=== PATIENT | female | born 1955 | race Hispanic/Latino ===

== ENCOUNTER → 2017-06-09 | Outpatient (CLI) | payer OTHER ==
[~2017-06-09] MED LIST: DIOVAN160 MG PO; GLIPIZIDE10 MG PO; HYZAAR 100-12.1 EACH; LEVEMIR 3M100 UNITS/ SQ; LEVEMIR100 UNIT/1 SQ; LEVOTHYROXINE50 MCG PO; LISINOPRIL5 MG PO; METFORMIN HCL1000 MG PO; PANTOPRAZOLE SO40 MG PO; PRAVASTATIN SOD80 MG PO; PROTONIX40 MG/ML PO
== END ==
LOC: MAMMO 12:57
PROVIDERS: ATTEND Internal Medicine
DX: Z12.31 Encounter for screening mammogram for malignant neoplasm of breast (principal)
CPT/HCPCS: 77067

== ENCOUNTER 2018-08-02 14:01 | Emergency (ER) | payer OTHER ==
[~2018-08-02] VITALS: Ht 162.6 cm; Wt 81.6 kg
--- OUTSIDE RECORDS SUMMARY | 2018-08-02 14:04 | XMS REPORT ---
Author Author [facility] Address Unknown Phone Unavailable Care Team Providers Care Taxi Servicer Name Role Phone Hoang MONTOYA Unavailable Unavailable Odin BASS Unavailable Unavailable Problems This patient has no known problems. Allergies, Adverse Reactions, Alerts This patient has no known allergies or adverse reactions. Medications This patient has no known medications. Results Test Description Test Time Test Comments Text Results Atomic Results Result Comments MAMMOGRAPHY DIGITAL SCR BILAT [place] [address] Patient Name: CHELSI WRIGHT MR #: [id number] : 1955 Age/Sex: 61/F Req #: [id number] [facility] Physician: Ordered by: NORMA MONTOYA MD Report #: [id number] Location: MAMMO Room/Bed: Procedure: [id number] MG/MAMMOGRAPHY DIGITAL SCR BILAT Exam Date: 06/09/17 Exam Time: 1300 REPORT STATUS: Signed #[id number] - MGSCRBIL #BILATERAL DIGITAL SCREENING MAMMOGRAM WITH CAD: 06/09/2017 CLINICAL: Routine screening. Comparison is made to exams dated: 04/21/2016 mammogram and 08/22/2013 mammogram - [facility]. Current study contains 4 films. There are scattered fibroglandular elements in both breasts. Current study was also evaluated with a Computer Aided Detection (CAD) system. There are benign calcifications in both breasts. There also are benign densities in both breasts. Additionally there is a benign intramammary node in the right breast. No significant masses, calcifications, or other findings are seen in either breast. There has been no significant interval change. IMPRESSION: BENIGN There is no mammographic evidence of malignancy. A 1 year screening mammogram is recommended. The patient will be notified by letter of the results. Adriana block/alfreda:06/16/2017 09:30:05 Physical Therapy Director: Ritu BOGGS(Mikaela)(Hoang), [facility] letter sent: Compared to Prior B9 Mammogram BI- RADS: 2 Benign Dictated By: ADRIANA FRAZIER DO 9 Transcribed By: ALFREDA on 06/16/17929 COPY TO: NORMA MONTOYA MD ANKLE 3+ VIEWS LEFT [place] [address] Patient Name: CHELSI WRIGHT MR #: [id number] : 1955 Age/Sex: 60/F Req #: [id number] Adm Physician: Ordered by: ALEXIS BASS MD Report #: [id number] Location: ER Room/Bed: Procedure: [id number] DX/ANKLE 3+ VIEWS LEFT Exam Date: Exam Time: REPORT STATUS: Signed ANKLE 3+ VIEWS LEFT Comparison: None Clinical history: Pain, swelling Findings: Moderate soft tissue swelling about the ankle. No fracture or dislocation. Incidental plantar calcaneal spur. Impression: Moderate soft tissue swelling without acute bony abnormality Signed by: Dr Benedict Gray MD on 11/11/2016 5:17 AM Dictated By: BENEDICT GRAY MD 6 Transcribed By: JAELYN on 11/11/16516 COPY TO: ALEXIS BASS MD
[2018-08-02] MEDS ORDERED: ACETAMINOPHEN 1000 MG/100 ML IV ONE (14:19)
[2018-08-02] MEDS ORDERED: SODIUM CHLORIDE 0.9% 1000ML 1,000 ML IV STA (14:19)
[2018-08-02 14:41] LABS: BASOPHILS % 0.3 % (0.0-1.0); EOSINOPHILS % 0.4 % (0.0-6.0); HEMATOCRIT 37.4 % (34.2-44.1); HEMOGLOBIN 13.1 g/dL (12.0-16.0); LYMPHOCYTES # (AUTO) 0.7 (1.0-3.2); LYMPHOCYTES % 10.9 % (18.0-39.1); MEAN CORPUSCULAR HEMOGLOBIN 29.6 pg (28-32); MEAN CORPUSCULAR VOLUME 84.6 fL (81-99); MONOCYTES # (AUTO) 0.6 (0.2-0.8); MONOCYTES % 8.5 % (4.4-11.3); NEUTROPHILS # (AUTO) 5.4 (2.1-6.9); NEUTROPHILS % 79.3 % (38.7-80.0); PLATELET COUNT 180 x10e3/uL (140-360); RED BLOOD COUNT 4.42 x10e6/uL (3.6-5.1); RED CELL DISTRIBUTION WIDTH 12.8 % (11.7-14.4)
[2018-08-02 14:57] LABS: ALBUMIN 4.1 g/dL (3.5-5.0); ALBUMIN/GLOBULIN RATIO 1.2 (0.8-2.0); ANION GAP 15.8 mmol/L (8-16); CALCIUM 9.5 mg/dL (8.4-10.2); CLARITY,URINE CLEAR (CLEAR); COLOR,URINE YELLOW (YELLOW); CREATININE, SERUM 0.94 mg/dL (0.57-1.11); LEUKOCYTE ESTERASE ,URINE NEGATIVE (NEGATIVE); NITRITE,URINE NEGATIVE (NEGATIVE); POTASSIUM 3.8 mmol/L (3.5-5.1); PROTEIN,URINE DIPSTICK NEGATIVE (NEGATIVE); URINE UROBILINOGEN 0.2 mg/dL (0.2 - 1)
[2018-08-02 14:58] LABS: BILIRUBIN,URINE 1+ (NEGATIVE); KETONES,URINE NEGATIVE (NEGATIVE)
[2018-08-02] MEDS ORDERED: CEFEPIME 1GM/NS 0.9% 50 ML 50 ML IV ONE (15:00)
[2018-08-02 15:03] LABS: CREATINE KINASE MB 1.2 ng/mL (0-5.0)
[2018-08-02] MEDS ORDERED: SODIUM CHLORIDE 0.9% 1000ML 1,000 ML IV SCH (15:15)
[2018-08-02] MEDS ORDERED: INSULIN REGULAR, HUMAN 100 UNIT/1 ML 3ML VIAL IV ONE (15:15)
[2018-08-02 15:17] LABS: BACTERIA,URINE FEW /HPF; EPITHELIAL CELLS,URINE MODERATE /LPF; RBC,URINE 0-5 /HPF (0-5); TRANSITIONAL EPI CELLS,URINE FEW
--- NOTE | 2018-08-02 16:52 | Diagnostic Imaging Report ---
EXAM: CHEST SINGLE (PORTABLE), AP Portable DATE: 08/02/2018 Time stamp on exam: 2:34 PM INDICATION: Cough and fever COMPARISON: None FINDINGS: LINES/TUBES: None LUNGS: Pulmonary vascular congestion. PLEURA: No effusions or pneumothorax. HEART AND MEDIASTINUM: Cardiomegaly. BONES AND SOFT TISSUES: No acute findings. IMPRESSION: Cardiomegaly with pulmonary vascular congestion. Signed by: Dr. Quang Bynum DO on 08/02/2018 4:48 PM
--- NOTE | 2018-08-02 17:07 | Diagnostic Imaging Report ---
EXAM: CT ABDOMEN AND PELVIS with IV CONTRAST DATE: 08/02/2018 Time stamp on Exam: 3:59 PM INDICATION: Abdominal pain, nausea and vomiting COMPARISON: None TECHNIQUE: The abdomen and pelvis were scanned using a multidetector helical scanner. Coronal and sagittal reformations were obtained. Routine protocol performed. Technique modification was utilized to maintain the lowest dose possible to the patient. IV Contrast: 100 cc of Isovue-300 Oral Contrast: None Radiation Dose: Total DLP 567.97 mGy*cm Estimated effective dose: DLP x 0.015 x size factor FINDINGS: LOWER THORAX: There is right hilar adenopathy and mediastinal adenopathy. CT scan with IV contrast is recommended for further evaluation. LIVER: No masses with diffuse hepatic fatty infiltration. BILIARY: The gallbladder is absent. Calcification in the gallbladder fossa. No ductal dilatation. SPLEEN: No masses PANCREAS: No masses ADRENALS: There is a 4.9 cm left adrenal mass with some macroscopic fat. Adrenal mass protocol MRI is recommended for further evaluation due to the size of this. Some irregular enhancement is seen within this mass. The macroscopic fat is suggestive of a benign myelolipoma. KIDNEYS: Symmetric perfusion. No enhancing masses. No hydronephrosis. Right renal cystic lesion is too small to characterize. GI TRACT: No distention, wall thickening or evidence of obstruction. Sigmoid colon diverticulosis without findings of diverticulitis. VESSELS: Vascular calcification with an accessory left renal artery. PERITONEUM/RETROPERITONEUM: No free air or fluid LYMPH NODES: No lymphadenopathy REPRODUCTIVE ORGANS: There is a uterine fibroid present. BLADDER: Unremarkable SOFT TISSUES: Unremarkable BONES: No suspicious bone lesions. Mild degenerative changes of the spine. IMPRESSION: 1. No acute abnormality within the abdomen or pelvis. 2. Large left adrenal mass likely is benign but MRI adrenal mass protocol is recommended for complete characterization. 3. Diffuse hepatic steatosis. 4. Right hilar and mediastinal lymphadenopathy. 5. Colonic diverticulosis without evidence of diverticulitis. Signed by: Dr. Quang Bynum DO on 08/02/2018 5:04 PM
[2018-08-02] MEDS ORDERED: SODIUM CHLORIDE 0.9% 50ML 50 ML ONE (17:48)
[2018-08-02] MEDS ORDERED: IOPAMIDOL 370 MG/ML 200 ML INFUS..BTL INJ ONE (17:48)
[2018-08-02 18:08] VITALS: BP 168/78
== END 2018-08-02 18:26 | disposition home or self-care (01) ==
LOC: ER 14:01
DX: R07.2 Precordial pain (principal); R50.9 Fever, unspecified; R05 Cough; J15.9 Unspecified bacterial pneumonia; I10 Essential (primary) hypertension; E11.9 Type 2 diabetes mellitus without complications; E03.9 Hypothyroidism, unspecified; E78.5 Hyperlipidemia, unspecified
CPT/HCPCS: 36415; 71045; 74177; 80053; 81001; 82550; 82553; 82948; 83605; 83690; 83880; 84484; 85025; 87040; 87086; 93005; 99284; J0692; J1817; J7030; Q9967

== ENCOUNTER 2019-04-07 15:33 | Emergency (ER) | payer MEDICARE, OTHER ==
[~2019-04-07] VITALS: Ht 162.6 cm; Wt 81.6 kg
[2019-04-07 16:46] LABS: BASOPHILS % 0.3 % (0.0-1.0); EOSINOPHILS # (AUTO) 0.1 (0.0-0.4); EOSINOPHILS % 1.1 % (0.0-6.0); HEMATOCRIT 37.9 % (34.2-44.1); LYMPHOCYTES % 18.8 % (18.0-39.1); MEAN CORPUSCULAR HEMOGLOBIN 29.3 pg (28-32); MEAN CORPUSCULAR HGB CONC 34.3 g/dL (31-35); MEAN CORPUSCULAR VOLUME 85.6 fL (81-99); MONOCYTES # (AUTO) 0.6 (0.2-0.8); MONOCYTES % 5.4 % (4.4-11.3); NEUTROPHILS # (AUTO) 7.7 (2.1-6.9); NEUTROPHILS % 73.9 % (38.7-80.0); PLATELET COUNT 225 x10e3/uL (140-360); RED BLOOD COUNT 4.43 x10e6/uL (3.6-5.1); RED CELL DISTRIBUTION WIDTH 12.5 % (11.7-14.4)
[2019-04-07 17:08] LABS: ALANINE AMINOTRANSFERASE 20 IU/L (0-55); ALBUMIN 4.2 g/dL (3.5-5.0); ALBUMIN/GLOBULIN RATIO 1.2 (0.8-2.0); ALKALINE PHOSPHATASE 137 IU/L (40-150); ANION GAP 13.6 mmol/L (8-16); BLOOD UREA NITROGEN 16 mg/dL (7-26); BUN/CREATININE RATIO 20 (6-25); CALCIUM 9.4 mg/dL (8.4-10.2); CARBON DIOXIDE 28 mmol/L (22-29); CHLORIDE 99 mmol/L (98-107); CREATINE KINASE 40 IU/L (29-168); CREATININE, SERUM 0.79 mg/dL (0.57-1.11); EST GLOMERULAR FILTRATION RATE > 60 ML/MIN (60-); GLUCOSE 125 mg/dL (74-118); POTASSIUM 3.6 mmol/L (3.5-5.1); SODIUM 137 mmol/L (136-145)
[2019-04-07] MEDS: CLONIDINE HCL 0.2 MG TAB PO ONE (17:09)
[2019-04-07] MEDS: ACETAMINOPHEN 325 MG TAB PO ONE (17:09)
--- NOTE | 2019-04-07 18:25 | Diagnostic Imaging Report ---
EXAM: CHEST SINGLE (PORTABLE), AP Portable DATE: 04/07/2019 3:50 PM INDICATION: CHF. Hypertension. COMPARISON: 07/02/2018. FINDINGS: LINES/TUBES: None LUNGS: Pulmonary vascular congestion. No consolidations. Mild elevation of the right hemidiaphragm. PLEURA: No effusions or pneumothorax. HEART AND MEDIASTINUM: Cardiomegaly. BONES AND SOFT TISSUES: No acute findings. IMPRESSION: Cardiomegaly with mild pulmonary vascular congestion. Signed by: Dr. Peter Smallwood M.D. on 04/07/2019 6:22 PM
== END 2019-04-07 18:54 | disposition home or self-care (01) ==
LOC: ER 15:33
DX: I10 Essential (primary) hypertension (principal)
CPT/HCPCS: 36415; 71045; 80053; 82550; 82553; 83880; 84484; 85025; 93005; 99284

== ENCOUNTER 2019-04-17 08:21 | Emergency (ER) | payer MEDICARE ==
[~2019-04-17] VITALS: Ht 157.5 cm; Wt 83.9 kg
--- OUTSIDE RECORDS SUMMARY | 2019-04-17 08:24 | XMS REPORT ---
[facility] Address Unknown Phone Unavailable Care Team Providers Care Computer Project Manager Name Role Phone James LÓPEZ Unavailable Unavailable Melvin LOGAN Unavailable Unavailable Hoang MONTOYA Unavailable Unavailable Odin BASS Unavailable Unavailable Problems This patient has no known problems. Allergies, Adverse Reactions, Alerts This patient has no known allergies or adverse reactions. Medications This patient has no known medications. Results Test Description Test Time Test Comments Text Results Atomic Results Result Comments CHEST SINGLE (PORTABLE) 2019-04-07 18:21:00 [place] [address] Patient Name: CHELSI MARQUES MR #: [id number] : 1955 Age/Sex: 63/F Req #: [id number] Adm Physician: Ordered by: URIEL LÓPEZ MD Report #: [id number] Location: ER Room/Bed: Procedure: [id number] DX/CHEST SINGLE (PORTABLE) Exam Date: 04/07/19 Exam Time: 1635 REPORT STATUS: Signed EXAM: CHEST SINGLE (PORTABLE), AP Portable DATE: 04/07/2019 3:50 PM INDICATION: CHF. Hypertension. COMPARISON: 07/02/2018. FINDINGS: LINES/TUBES: None LUNGS: Pulmonary vascular congestion. No consolidations. Mild elevation of the right hemidiaphragm. PLEURA: No effusions or pneumothorax. HEART AND MEDIASTINUM: Cardiomegaly. BONES AND SOFT TISSUES: No acute findings. IMPRESSION: Cardiomegaly with mild pulmonary vascular congestion. Signed by: Dr. Peter Moraes M.D. on 04/07/2019 6:22 PM Dictated By: WAQAS MORAES MD, MD 21 Transcribed By: JAELYN on 04/07/191821 COPY TO: URIEL LÓPEZ MD CT ABDOMEN/PELVIS W 2018-08-02 16:49:00 [place] [address] Patient Name: CHELSI WRIGHT MR #: [id number] : 1955 Age/Sex: 62/F Req #: [id number] Adm Physician: Ordered by: TANYA LOGAN MD Report #: [id number] Location: ER Room/Bed: Procedure: [id number] CT/CT ABDOMEN/PELVIS W Exam Date: 08/02/18 Exam Time: 1550 REPORT STATUS: Signed EXAM: CT ABDOMEN AND PELVIS with IV CONTRAST DATE: Time stamp on Exam: 3:59 PM INDICATION: Abdominal pain, nausea and vomiting COMPARISON: None TECHNIQUE: The abdomen and pelvis were scanned using a multidetector helical scanner. Coronal and sagittal reformations were obtained. Routine protocol performed. Technique modification was utilized to maintain the lowest dose possible to the patient. IV Contrast: 100 cc of Isovue-300 Oral Contrast: None Radiation Dose: Total DLP 567.97 mGy*cm Estimated effective dose: DLP x 0.015 x size factor FINDINGS: LOWER THORAX: There is right hilar adenopathy and mediastinal adenopathy. CT scan with IV contrast is recommended for further evaluation. LIVER: No masses with diffuse hepatic fatty infiltration. BILIARY: The gallbladder is absent. Calcification in the gallbladder fossa. No ductal dilatation. SPLEEN: No masses PANCREAS: No masses ADRENALS: There is a 4.9 cm left adrenal mass with some macroscopic fat. Adrenal mass protocol MRI is recommended for further evaluation due to the size of this. Some irregular enhancement is seen within this mass. The macroscopic fat is suggestive of a benign myelolipoma. KIDNEYS: Symmetric perfusion. No enhancing masses. No hydronephrosis. Right renal cystic lesion is too small to characterize. GI TRACT: No distention, wall thickening or evidence of obstruction. Sigmoid colon diverticulosis without findings of diverticulitis. VESSELS: Vascular calcification with an accessory left renal artery. PERITONEUM/RETROPERITONEUM: No free air or fluid LYMPH NODES: No lymphadenopathy REPRODUCTIVE ORGANS: There is a uterine fibroid present. BLADDER: Unremarkable SOFT TISSUES: Unremarkable BONES: No suspicious bone lesions. Mild degenerative changes of the spine. IMPRESSION: 1. No acute abnormality within the abdomen or pelvis. 2. Large left adrenal mass likely is benign but MRI adrenal mass protocol is recommended for complete characterization. 3. Diffuse hepatic steatosis. 4. Right hilar and mediastinal lymphadenopathy. 5. Colonic diverticulosis without evidence of diverticulitis. Signed by: Dr. Quang Bynum DO on 08/02/2018 5:04 PM Dictated By: QUANG BYNUM DO 03 Transcribed By: JAELYN on 08/02/181703 COPY TO: TANYA LOGAN MD CHEST SINGLE (PORTABLE) 2018-08-02 16:47:00 [place] [address] Patient Name: CHELSI WRIGHT MR #: [id number] : 1955 Age/Sex: 62/F Req #: [id number] Adm Physician: Ordered by: TANYA LOGAN MD Report #: [id number] Location: ER Room/Bed: Procedure: [id number] DX/CHEST SINGLE (PORTABLE) Exam Date: 08/02/18 Exam Time: 1430 REPORT STATUS: Signed EXAM: CHEST SINGLE (PORTABLE), AP Portable DATE: 08/02/2018 Time stamp on exam: 2:34 PM INDICATION: Cough and fever COMPARISON: None FINDINGS: LINES/TUBES: None LUNGS: Pulmonary vascular congestion. PLEURA: No effusions or pneumothorax. HEART AND MEDIASTINUM: Cardiomegaly. BONES AND SOFT TISSUES: No acute findings. IMPRESSION: Cardiomegaly with pulmonary vascular congestion. Signed by: Dr. Quang Bynum DO on 08/02/2018 4:48 PM Dictated By: QUANG BYNUM DO 47 Transcribed By: JAELYN on 08/02/181647 COPY TO: TANYA LOGAN MD MAMMOGRAPHY DIGITAL SCR BILAT [place] [address] Patient Name: CHELSI WRIGHT MR #: [id number] : 1955 Age/Sex: 61/F Req #: [id number] Adm Physician: Ordered by: NORMA MONTOYA MD Report #: [id number] [facility] Room[facility]Bed: Procedure: [id number] MG/MAMMOGRAPHY DIGITAL SCR BILAT Exam Date: 06/09/17 Exam Time: 1300 REPORT STATUS: Signed #[id number] - MGSCRBIL #BILATERAL DIGITAL SCREENING MAMMOGRAM WITH CAD: 06/09/2017 CLINICAL: Routine screening. Comparison is made to exams dated: 04/21/2016 mammogram and 08/22/2013 mammogram - [facility]. Current study contains 4 films. There are [...] be notified by letter of the results. Quang block/arabella:06/16/2017 09:30:05 Pattern Keeper: Ritu Camarena RT(R)(M), [facility] letter sent: Compared to Prior B9 Mammogram BI- RADS: 2 Benign Dictated By: QUANG BYNUM DO 9 Transcribed By: ARABELLA on 06/16/17929 COPY TO: NORMA MONTOYA MD ANKLE 3+ VIEWS LEFT [place] [address] Patient Name: CHELSI WRIGHT MR #: [id number] : 1955 Age/Sex: 60/F Req #: [id number] Adm Physician: Ordered by: ALEXIS BASS MD Report #: [id number] Location: ER Room/Bed: Procedure: [id number] DX/ANKLE 3+ VIEWS LEFT Exam Date: Exam [...]
[2019-04-17] MEDS ORDERED: SODIUM CHLORIDE 0.9% 1000ML 1,000 ML IV STA (08:36)
[2019-04-17 08:59] LABS: BASOPHILS % 0.2 % (0.0-1.0); EOSINOPHILS # (AUTO) 0.1 (0.0-0.4); EOSINOPHILS % 0.6 % (0.0-6.0); HEMATOCRIT 39.3 % (34.2-44.1); HEMOGLOBIN 13.6 g/dL (12.0-16.0); LYMPHOCYTES # (AUTO) 1.9 (1.0-3.2); LYMPHOCYTES % 15.5 % (18.0-39.1); MEAN CORPUSCULAR HEMOGLOBIN 29.4 pg (28-32); MEAN CORPUSCULAR HGB CONC 34.6 g/dL (31-35); MEAN CORPUSCULAR VOLUME 85.1 fL (81-99); MONOCYTES # (AUTO) 0.5 (0.2-0.8); MONOCYTES % 4.1 % (4.4-11.3); NEUTROPHILS # (AUTO) 9.9 (2.1-6.9); NEUTROPHILS % 79.2 % (38.7-80.0); PLATELET COUNT 237 x10e3/uL (140-360); RED BLOOD COUNT 4.62 x10e6/uL (3.6-5.1); RED CELL DISTRIBUTION WIDTH 12.4 % (11.7-14.4)
[2019-04-17 09:12] LABS: INR 0.91; PROTHROMBIN TIME 12.8 seconds (11.9-14.5)
[2019-04-17 09:19] LABS: BILIRUBIN,URINE NEGATIVE (NEGATIVE); CLARITY,URINE CLOUDY (CLEAR); COLOR,URINE YELLOW (YELLOW); KETONES,URINE NEGATIVE (NEGATIVE); LEUKOCYTE ESTERASE ,URINE LARGE (NEGATIVE); NITRITE,URINE NEGATIVE (NEGATIVE); PROTEIN,URINE DIPSTICK 2+ (NEGATIVE); URINE UROBILINOGEN 0.2 mg/dL (0.2 - 1)
[2019-04-17 09:35] LABS: BACTERIA,URINE MANY /HPF; EPITHELIAL CELLS,URINE RARE /LPF; RBC,URINE 21-50 /HPF (0-5); WBC,URINE (MAN) >50 /HPF (0-5)
--- NOTE | 2019-04-17 09:44 | Diagnostic Imaging Report ---
Exams: Head and cervical spine CTs without IV contrast History: Head and neck pain Comparison studies: Head CT 08/13/2015 and 01/15/2015 Technique: Axial images were obtained from the brain and cervical spine. Coronal and sagittal images reconstructed from the axial data. Dose modulation, iterative reconstruction, and/or weight based adjustment of the mA/kV was utilized to reduce the radiation dose to as low as reasonably achievable. Intravenous contrast: None Findings: Head CT: Scalp: No abnormalities. Bones: No fractures, blastic or lytic lesions. Extra-axial spaces: Amorphous 2.0 x 0.5 x 1.5 cm (SI x AP x TV) calcification along the dorsal foramen magnum extends into the dorsal cervical canal at the C1-C2 level and results result in moderate to severe stenosis at the C1-C2 level. Findings could represent calcified meningioma or chronic ligamentous or dystrophic calcification. Brain sulci: Appropriate for age. Ventricles: Normal in size and configuration. No hydrocephalus. Parenchyma: No abnormal densities. No masses, acute hemorrhage, acute or chronic vascular insults. Sellar/suprasellar region: No abnormalities. Craniocervical junction: See extra-axial spaces, as above. No Chiari one malformation. Cervical spine CT: Fractures: None. Soft tissues: No gross acute abnormalities. Atlantoaxial articulation: Intact. Alignment: Normal lordosis. No scoliosis. Cervicomedullary junction: No Chiari one malformation. See extra-axial spaces, as above. Vertebrae: No fracture or infection. A few scattered small nonaggressive-appearing lucent foci such as that in the C4, C5 and C6 vertebral bodies are nonspecific, possibly small hemangiomas. Degenerative changes: Right anterior marginal osteophyte at C5-C6 indents the prevertebral soft tissues. Mildly degenerated C5-C6 and C7-T1 discs. Small disc osteophyte complex at C5-C6 and this the thecal sac without significant canal stenosis. Mild multilevel uncovertebral and facet arthrosis without significant foraminal stenosis. Incidental findings: * Calcified atherosclerosis in the carotid bulbs, carotid siphons and intradural vertebral arteries. Anatomical retropharyngeal course of the bilateral cervical carotid arteries. * Nonspecific thyroid heterogeneity with punctate calcification in the right mid thyroid lobe. Findings could be correlated with thyroid function testing. * IMPRESSION: Head CT: 1. No acute abnormalities. 2. Chronic calcification at the foramen magnum/upper cervical canal results in moderate to severe canal stenosis and has been present on remote exams which date to 01/15/2015. Differential includes calcified meningioma or thick calcified ligament. Cervical spine MRI with IV contrast may further evaluate. Cervical spine CT: 1. No acute osseous abnormalities. 2. Chronic calcification in the dorsal foramen magnum/upper cervical canal, as above. 3. Mild degenerative changes as described. 4. Cannot exclude ligament, spinal cord and or vascular abnormalities on the basis of this examination. Signed by: Dr. Yong Broussard M.D. on 04/17/2019 9:41 AM
[2019-04-17] MEDS ORDERED: ONDANSETRON HCL INJ 2MG/ML 2ML 2 MG/ML VIAL IV STA (11:22)
[2019-04-17] MEDS ORDERED: CEFTRIAXONE SOD 1 GM/NS 50 ML 50 ML IV ONE (11:30)
[2019-04-17] MEDS ORDERED: MORPHINE SULFATE 2 MG/ML SYR 1ML IV ONE (11:30)
[2019-04-17 11:44] LABS: ALANINE AMINOTRANSFERASE 17 IU/L (0-55); ALBUMIN 4.3 g/dL (3.5-5.0); ALBUMIN/GLOBULIN RATIO 1.1 (0.8-2.0); ALKALINE PHOSPHATASE 151 IU/L (40-150); ANION GAP 15.1 mmol/L (8-16); BLOOD UREA NITROGEN 17 mg/dL (7-26); BUN/CREATININE RATIO 25 (6-25); CALCIUM 9.7 mg/dL (8.4-10.2); CARBON DIOXIDE 27 mmol/L (22-29); CHLORIDE 98 mmol/L (98-107); CREATINE KINASE 15 IU/L (29-168); CREATININE, SERUM 0.69 mg/dL (0.57-1.11); EST GLOMERULAR FILTRATION RATE > 60 ML/MIN (60-); GLUCOSE 151 mg/dL (74-118); MAGNESIUM 1.4 MG/DL (1.3-2.1); POTASSIUM 4.1 mmol/L (3.5-5.1); SODIUM 136 mmol/L (136-145)
[2019-04-17] MEDS ORDERED: GADOBENATE DIMEGLUMINE 1 ML IV ONE (12:17)
--- NOTE | 2019-04-17 13:13 | Diagnostic Imaging Report ---
EXAM: CHEST SINGLE (PORTABLE) DATE: 04/17/2019 8:36 AM INDICATION: Headache COMPARISON: 04/07/2019 FINDINGS: The trachea is midline. There is no evidence for large focal consolidation, pneumothorax, or significant pleural effusion. The cardiac silhouette remains enlarged. The pulmonary vasculature is not engorged. Mediastinal contours are unremarkable. No acute osseous abnormality is identified. IMPRESSION: No acute cardiopulmonary process or significant interval change identified from 04/07/2019. Stable cardiomegaly. Signed by: Dr. Erik Mayes MD on 04/17/2019 1:10 PM
--- NOTE | 2019-04-17 14:13 | Diagnostic Imaging Report ---
Brain MRI without IV contrast and cervical spine MRI without with IV contrast History: Neck pain, headache, lesion seen on CT. Comparison studies: Head and cervical spine CTs of 04/17/2019, head CTs of 08/13/2015 and 01/15/2015. Brain MRI: Sagittal and axial T2, axial WI, precontrast axial T1 FLAIR, axial coronal T2 flair, axial T2*GRE. IV contrast: None. Cervical spine MRI: Sagittal and axial T2, precontrast sagittal and axial T1 FLAIR, sagittal T2, axial T2*GRE and postcontrast sagittal and axial T1 FS. IV contrast: 19 cc MultiHance Findings: Brain MRI: Scalp: No abnormal signal. No masses. Bone marrow: Normal in signal intensity. Brain sulci: Appropriate for age. Ventricles: Normal in size Extra-axial spaces: Enhancing mass at the craniocervical junction/upper cervical canal as below. No other mass or fluid collection. Parenchyma: No mass, hemorrhage or acute ischemia. A few scattered T2 FLAIR hyperintense foci in the supratentorial white matter are nonspecific but are most compatible with chronic microvascular ischemic changes. Suprasellar region: No abnormalities. Craniocervical junction: Calcified, enhancing 2.0 x 0.7 x 1.5 cm (SI x AP x TV) lesion with dural tail along the dorsal foramen magnum extends into the upper cervical canal the C1-C2 and results in severe canal stenosis at the C1-C2 level with mass effect on the spinal cord without associated cord signal abnormality. Vessels: Normal flow-voids in the arteries and sinuses. Anatomical variant retropharyngeal course of the carotid arteries. Cervical spine MRI without with IV contrast Alignment: Straightened cervical curvature may be positional. Cervicomedullary junction: No abnormalities. Patent foramen magnum. Soft tissues: No T2 hyperintense inflammatory changes. Spinal cord: Cord Vertebrae: No fractures, infection or neoplasm. Degenerative changes: C2-C3: Mildly degenerated disc. Patent canal and foramina. C3-C4: Mild degenerated disc. Mild right uncovertebral arthrosis without significant foraminal stenosis. Patent canal and left foramen. C4-C5: Early degenerated disc uncovertebral arthrosis without significant foraminal stenosis. Patent canal. C5-C6: Mildly degenerated disc. Disc osteophyte complex and bilateral uncovertebral arthrosis without significant canal or foraminal stenosis. C6-C7: Small disc bulge does not result significant canal stenosis. Patent neural foramina. C7-T1: Small disc osteophyte complex indents the thecal sac but does not result in significant canal stenosis. Patent neural foramina. Included thoracic spine: Mild multilevel disc degeneration small disc bulges at T2-T3 and at T3-T4 without significant canal stenosis, mild degenerative endplate changes with mild endplate edema at T5-T6. IMPRESSION: Brain MRI: 1. No acute intracranial abnormalities. 2. Mild chronic microvascular ischemic changes. 3. Calcified, 2.0 cm enhancing dural-based mass within the dorsal foramen magnum/upper cervical canal results in severe canal stenosis with associated mass effect on the cervical cord near the craniocervical junction at C1-C2. No associated cord signal abnormality. Working diagnosis is meningioma Cervical spine MRI: 1. Enhancing calcified lesion at the foramen magnum/upper cervical canal with severe canal stenosis and mass effect on the cord at C1-C2 as described above. 2. Mild degenerative changes without significant canal or foraminal stenosis. Signed by: Dr. Yong Broussard M.D. on 04/17/2019 2:10 PM
[2019-04-17 14:29] VITALS: BP 138/73
--- NOTE | 2019-04-17 15:38 | NUR ---
[facility] called for transport
[2019-04-17] MEDS ORDERED: DEXAMETHASONE SOD PHOS 10 MG/1 ML VIAL IV ONE (15:45)
--- NOTE | 2019-04-17 17:10 | NUR ---
report given to shady kent at [facility]
== END 2019-04-17 17:02 | disposition short-term general hospital (02) ==
LOC: ER 08:21
DX: G44.89 Other headache syndrome (principal); S16.1XXA Strain of muscle, fascia and tendon at neck level, initial encounter; N39.0 Urinary tract infection, site not specified; I10 Essential (primary) hypertension; E11.9 Type 2 diabetes mellitus without complications; E78.00 Pure hypercholesterolemia, unspecified; Z79.84 Long term (current) use of oral hypoglycemic drugs
CPT/HCPCS: 36415; 70450; 70551; 71045; 72125; 72156; 80053; 81001; 82550; 82553; 83735; 84443; 84484; 85025; 85610; 87086; 87186; 93005; 93880; 99284; A9577; J0696; J1100; J2270; J2405; J7030

== ENCOUNTER 2022-01-15 20:23 | Emergency (ER) | payer MEDICARE ==
[~2022-01-15] VITALS: Ht 162.6 cm; Wt 77.1 kg
[2022-01-15] MEDS ORDERED: NAPROSYN500 MG PO (21:35)
== END 2022-01-15 22:03 | disposition home or self-care (01) ==
LOC: ER 20:29
DX: M25.512 Pain in left shoulder (principal); G89.29 Other chronic pain; I10 Essential (primary) hypertension; E11.9 Type 2 diabetes mellitus without complications; E78.00 Pure hypercholesterolemia, unspecified
CPT/HCPCS: 99283

== ENCOUNTER 2024-09-29 14:07 | Emergency (ER) | payer MEDICARE ==
[~2024-09-29] VITALS: Ht 162.6 cm; Wt 77.1 kg
[~2024-09-29 14:07] MED LIST changes: +NAPROSYN500 MG PO
[2024-09-29 14:17] VITALS: TEMP 98.2
[2024-09-29 14:52] LABS: BASOPHILS % 0.3 % (0.0-1.0); EOSINOPHILS % 0.9 % (0.0-6.0); LYMPHOCYTES % 16.9 % (18.0-39.1); MONOCYTES % 6.1 % (4.4-11.3); NEUTROPHILS % 75.7 % (38.7-80.0); RED CELL DISTRIBUTION WIDTH 13.5 % (11.7-14.4)
[2024-09-29 15:09] VITALS: PULSE 81; RESP 15; O2SAT 99
[2024-09-29 15:25] LABS: EST GLOMERULAR FILTRATION RATE 50.0 ML/MIN (>=60)
[2024-09-29] MEDS ORDERED: SODIUM CHLORIDE 0.9% 100 ML ONE (15:36)
[2024-09-29] MEDS ORDERED: IOPAMIDOL 370 MG/ML 100 ML INFUS..BTL INJ ONE (15:36)
== END 2024-09-29 20:48 | disposition home or self-care (01) ==
LOC: ER 14:37
DX: R07.89 Other chest pain (principal); I12.9 Hypertensive chronic kidney disease with stage 1 through stage 4 chronic kidney disease, or unspecified chronic kidney disease; E11.22 Type 2 diabetes mellitus with diabetic chronic kidney disease; N18.9 Chronic kidney disease, unspecified; E78.5 Hyperlipidemia, unspecified; E03.9 Hypothyroidism, unspecified; E78.00 Pure hypercholesterolemia, unspecified
CPT/HCPCS: 36415; 71275; 74174; 80053; 82550; 84484; 85025; 93005; 99284; J7050; Q9967